=== PATIENT | male | born 1955 | race Caucasian/White ===

== ENCOUNTER 2022-06-29 00:27 | Emergency (ER) | payer OTHER ==
[2022-06-29] MEDS ORDERED: NA CHLORIDE 0.9% 1,000 ML ONE (01:30)
[2022-06-29] MEDS ORDERED: ASPIRIN 81 MG CHEWABLE TABLET ONE (01:31)
[2022-06-29] MEDS ORDERED: CEFTRIAXONE 1000 MG/VIAL ONE (01:31)
[2022-06-29] MEDS ORDERED: AZITHROMYCIN 500 MG INJ IVPB ONE (01:32)
[2022-06-29] MEDS ORDERED: FAMOTIDINE 20 MG/2 ML VIAL IV ONE ×2 (01:32→04:06)
--- NOTE | 2022-06-29 01:43 | ER ---
Nurse's Notes [facility] Name: Terrence Yoon Jr Age: 66 yrs Sex: Male : 1955 Arrival Date: 06/29/2022 Time: 00:32 Bed 2 Private MD: Diagnosis: Acute upper respiratory infection, unspecified;Fever, unspecified;Influenza due to identified novel influenza A virus;Coronavirus infection, unspecified;SARS-associated coronavirus as the cause of diseases classified elsewhere Presentation: 06/29 00:38 Chief complaint: Patient states: "I just been coughing, my nose is stopped up. I am tw5 just real real weak. If I get up and move I feel like I am going to break out in a cold sweat like I am going to faint.". Coronavirus screen: Vaccine status: Patient reports being unvaccinated. Ebola Screen: Patient negative for fever greater than or equal to 101.5 degrees Fahrenheit, and additional compatible Ebola Virus Disease symptoms Patient denies exposure to infectious person. Patient denies travel to an Ebola-affected area in the 21 days before illness onset. Initial Sepsis Screen: Does the patient meet any 2 criteria? No. Patient's initial sepsis screen is negative. Does the patient have a suspected source of infection? No. Patient's initial sepsis screen is negative. Risk Assessment: Do you want to hurt yourself or someone else? Patient reports no desire to harm self or others. Onset of symptoms was June 27, 2022. 00:38 Method Of Arrival: Wheelchair tw5 00:38 Acuity: YUMI 3 tw5 Triage Assessment: 00:40 General: Appears in no apparent distress. Behavior is quiet. Pain: Denies pain. tw5 Historical: - Allergies: 00:40 No Known Allergies; tw5 - PMHx: 00:40 None; tw5 - PSHx: 00:40 None; tw5 - Immunization history:: Flu vaccine is not up to date. - Social history:: Smoking status: Patient reports the use of cigarette tobacco products, smokes one pack cigarettes per day. - Family history:: not pertinent. Screenin:06 Abuse screen: Denies threats or abuse. Nutritional screening: No deficits noted. kl Tuberculosis screening: No symptoms or risk factors identified. Fall Risk None identified. Assessment: 01:05 General: Appears in no apparent distress. comfortable, Behavior is calm, cooperative. kl Pain: Denies pain. Neuro: No deficits noted. Cardiovascular: No deficits noted. Rhythm is sinus rhythm. Respiratory: No deficits noted. Airway is patent Trachea midline Respiratory effort is even, unlabored, Respiratory pattern is regular, symmetrical. GI: No deficits noted. No signs and/or symptoms were reported involving the gastrointestinal system. : No deficits noted. No signs and/or symptoms were reported regarding the genitourinary system. EENT: No deficits noted. No signs and/or symptoms were reported regarding the EENT system. Vital Signs: 00:38 BP 121 / 72; Pulse 67; Resp 18; Temp 97.7; Pulse Ox 100% on R/A; Weight 80.29 kg; tw5 Height 5 ft. 11 in. (180.34 cm); Pain 0/10; 01:03 BP 114 / 74; Pulse 67; Resp 20; Pulse Ox 97% ; kl 02:30 BP 140 / 79; Pulse 65; Resp 16 S; Pulse Ox 97% on R/A; as6 04:13 BP 149 / 81; Pulse 73; Resp 14 S; Pulse Ox 99% on R/A; as6 05:50 BP 143 / 83; Pulse 86; Resp 18 S; Pulse Ox 100% on R/A; as6 00:38 Body Mass Index 24.69 (80.29 kg, 180.34 cm) tw5 ED Course: 00:32 Patient arrived in ED. ja2 00:40 Triage completed. tw5 00:40 Arm band placed on. tw5 00:47 Estuardo Lai MD is Attending Physician. tata 01:23 Alhaji Romero, LEAH is Primary Nurse. as6 01:43 Mark Colon MD is Referral Physician. tata 01:58 Notified ED physician of a critical lab result(s). d dimer 746. kl 03:33 Marco Antonio Bourgeois MD is Hospitalizing Provider. tata 04:14 Placed in gown. Bed in low position. Call light in reach. Side rails up X2. as6 05:45 Mark Colon MD is Referral Physician. tata 05:50 No provider procedures requiring assistance completed. IV discontinued, intact, as6 bleeding controlled, No redness/swelling at site. Pressure dressing applied. 12:47 XRAY Chest (1 view) In Process Unspecified. EDMS Administered Medications: 01:30 Drug: NS 0.9% 1000 ml Route: IV; Rate: 1 bolus; Site: right antecubital; kl 02:30 Follow up: IV Status: Completed infusion; IV Intake: 1000ml kl 01:56 Drug: Pepcid (famotidine) 20 mg Route: IVP; Site: right antecubital; kl 03:16 Follow up: Response: No adverse reaction kl 02:07 Drug: Rocephin (cefTRIAXone) 1 grams Route: IV; Rate: per protocol; Site: right kl antecubital; 03:15 Follow up: Response: No adverse reaction kl 03:15 Follow up: Response: No adverse reaction kl 06:01 Follow up: Response: No adverse reaction; IV Status: Completed infusion; IV Intake: as6 100ml 02:57 Drug: Aspirin Chewable Tablet 162 mg Route: PO; kl 06:00 Follow up: Response: No adverse reaction as6 02:57 Drug: Zithromax (azithromycin) 500 mg Route: PO; kl 03:14 Follow up: Response: No adverse reaction kl 03:14 Drug: Tamiflu (oseltamivir) 75 mg Route: PO; kl 06:00 Follow up: Response: No adverse reaction as6 03:44 CANCELLED (Duplicate Order): Flomax (tamsulosin) 0.4 mg PO once tata 04:01 Drug: Lovenox (enoxaparin) 1 mg/kg Route: Sub-Q; Site: right lower abdomen; kd3 06:00 Follow up: Response: No adverse reaction as6 04:12 Drug: SOLU-Medrol (methylPrednisoLONE) 125 mg Route: IVP; Site: right antecubital; as6 06:00 Follow up: Response: No adverse reaction as6 04:12 Not Given (Duplicate Order): Pepcid (famotidine) 20 mg IVP once; dilute with 10 mL 0.9% as6 NaCl; give over 2 minutes 04:12 Drug: Benadryl (diphenhydrAMINE) 50 mg Route: IVP; Site: right antecubital; as6 06:00 Follow up: Response: No adverse reaction as6 Medication: 06:00 VIS not applicable for this client. as6 Intake: 02:30 IV: 1000ml; Total: 1000ml. kl 06:01 IV: 100ml; Total: 1100ml. as6 Outcome: 01:43 Discharge ordered by . tata 03:34 Decision to Hospitalize by Provider. tata 05:45 Discharge ordered by MD. tata 05:51 Discharged to home ambulatory, with family. as6 05:51 Condition: stable 05:51 Discharge instructions given to patient, Instructed on discharge instructions, follow up and referral plans. medication usage, Demonstrated understanding of instructions, follow-up care, medications, Prescriptions given X 05:59 Discharged to home ambulatory, with family. as6 05:59 Condition: stable 05:59 Discharge instructions given to patient, family, Instructed on discharge instructions, follow up and referral plans. medication usage, Demonstrated understanding of instructions, follow-up care, medications, Prescriptions given X 6 06:03 Patient left the ED. as6 Signatures: Dispatcher [employer] EDMS Brandee Sifuentes, LEAH RN Estuardo Hare MD MD cha Alexander, Jessica ja2 Wood, Tiffany tw5 Alhaji Romero RN RN as6 Erica Singh RN RN kd3 Corrections: (The following items were deleted from the chart) 00:42 00:40 Allergies: No Known Allergies; tw5 tw5
--- NOTE | 2022-06-29 01:44 | EDPHYS ---
Physician Documentation [facility] Name: Terrence Yoon Jr Age: 66 yrs Sex: Male : 1955 Arrival Date: 06/29/2022 Time: 00:32 Bed 2 Private MD: ED Physician Estuardo Lai HPI: 06/29 00:58 This 66 yrs old Male presents to ER via Wheelchair with complaints of Covid. tata 00:58 The patient has shortness of breath at rest, with light activity. Onset: The tata symptoms/episode began/occurred 3 day(s) ago. Duration: The symptoms are continuous, and are steadily getting worse. The patient's shortness of breath is aggravated by nothing, coughing, is alleviated by nothing. The patient or guardian reports cough, described as mild, flu symptoms, arthralgias, low-grade fever, myalgias. Modifying factors: The symptoms are alleviated by remaining still, the symptoms are aggravated by nothing. Associated signs and symptoms: Pertinent positives: non-productive cough. The patient or guardian reports difficulty breathing. Historical: - Allergies: 00:40 No Known Allergies; tw5 - PMHx: 00:40 None; tw5 - PSHx: 00:40 None; tw5 - Immunization history:: Flu vaccine is not up to date. - Social history:: Smoking status: Patient reports the use of cigarette tobacco products, smokes one pack cigarettes per day. - Family history:: not pertinent. ROS: 00:58 Constitutional: Negative for fever, chills, and weight loss, Eyes: Negative for injury, tata pain, redness, and discharge, Neck: Negative for injury, pain, and swelling, Cardiovascular: Negative for chest pain, palpitations, and edema, Abdomen/GI: Negative for abdominal pain, nausea, vomiting, diarrhea, and constipation, Back: Negative for injury and pain, : Negative for injury, bleeding, discharge, and swelling, MS/Extremity: Negative for injury and deformity, Skin: Negative for injury, rash, and discoloration, Neuro: Negative for headache, weakness, numbness, tingling, and seizure, Psych: Negative for depression, anxiety, suicide ideation, homicidal ideation, and hallucinations, Allergy/Immunology: Negative for hives, rash, and allergies, Endocrine: Negative for neck swelling, polydipsia, polyuria, polyphagia, and marked weight changes, Hematologic/Lymphatic: Negative for swollen nodes, abnormal bleeding, and unusual bruising. 00:58 ENT: Positive for rhinorrhea, sinus congestion. 00:58 Respiratory: Positive for cough, shortness of breath, at rest. Exam: 00:58 Constitutional: This is a well developed, well nourished patient who is awake, alert, tata and in no acute distress. Head/Face: Normocephalic, atraumatic. Eyes: Pupils equal round and reactive to light, extra-ocular motions intact. Lids and lashes normal. Conjunctiva and sclera are non-icteric and not injected. Cornea within normal limits. Periorbital areas with no swelling, redness, or edema. ENT: Nares patent. No nasal discharge, no septal abnormalities noted. Tympanic membranes are normal and external auditory canals are clear. Oropharynx with no redness, swelling, or masses, exudates, or evidence of obstruction, uvula midline. Mucous membranes moist. Neck: Trachea midline, no thyromegaly or masses palpated, and no cervical lymphadenopathy. Supple, full range of motion without nuchal rigidity, or vertebral point tenderness. No Meningismus. Chest/axilla: Normal chest wall appearance and motion. Nontender with no deformity. No lesions are appreciated. Cardiovascular: Regular rate and rhythm with a normal S1 and S2. No gallops, murmurs, or rubs. Normal PMI, no JVD. No pulse deficits. Respiratory: Lungs have equal breath sounds bilaterally, clear to auscultation and percussion. No rales, rhonchi or wheezes noted. No increased work of breathing, no retractions or nasal flaring. Abdomen/GI: Soft, non-tender, with normal bowel sounds. No distension or tympany. No guarding or rebound. No evidence of tenderness throughout. Back: No spinal tenderness. No costovertebral tenderness. Full range of motion. Male : Normal genitalia with no discharge or lesions. Skin: Warm, dry with normal turgor. Normal color with no rashes, no lesions, and no evidence of cellulitis. MS/ Extremity: Pulses equal, no cyanosis. Neurovascular intact. Full, normal range of motion. Neuro: Awake and alert, GCS 15, oriented to person, place, time, and situation. Cranial nerves II-XII grossly intact. Motor strength 5/5 in all extremities. Sensory grossly intact. Cerebellar exam normal. Normal gait. Psych: Awake, alert, with orientation to person, place and time. Behavior, mood, and affect are within normal limits. 00:58 Musculoskeletal/extremity: DVT Exam: No signs of deep vein thrombosis. no pain, no swelling, no tenderness, negative Homans' sign noted on exam, no appreciated bluish discoloration, no erythema, no increased warmth. 01:37 ECG was reviewed by the Attending Physician. [facility] Vital Signs: 00:38 BP 121 / 72; Pulse 67; Resp 18; Temp 97.7; Pulse Ox 100% on R/A; Weight 80.29 kg; tw5 Height 5 ft. 11 in. (180.34 cm); Pain 0/10; 01:03 BP 114 / 74; Pulse 67; Resp 20; Pulse Ox 97% ; kl 02:30 BP 140 / 79; Pulse 65; Resp 16 S; Pulse Ox 97% on R/A; as6 04:13 BP 149 / 81; Pulse 73; Resp 14 S; Pulse Ox 99% on R/A; as6 05:50 BP 143 / 83; Pulse 86; Resp 18 S; Pulse Ox 100% on R/A; as6 00:38 Body Mass Index 24.69 (80.29 kg, 180.34 cm) tw5 MDM: 00:47 Patient medically screened. tata 01:00 Differential diagnosis: Anemia Bronchitis CHF exacerbation, Chronic Obstructive tata Pulmonary Disease bronchitis, flu, URI, Myocardial Infarction pneumonia, pulmonary edema, Pulmonary Embolism Sepsis. Antibiotic administration: Rocephin and Zithromax given. The patient's Wells Deep Vein Thrombosis Score was calculated as follows: Total Score: 0-2 Pts- Low Risk. Differential Diagnosis: Bronchitis Influenza Upper Respiratory Infection Sinusitis Pharyngitis Otitis Media Asthma Exacerbation Pneumonia. The patient's pulmonary embolism risk score was calculated as follows: Total Score: 0-2 points. This patient was found to be at low risk for a pulmonary embolism by using the Well's assessment criteria. Immunization status: Pneumococcal vaccine: Influenza vaccine: Data reviewed: vital signs, nurses notes, lab test result(s), EKG, radiologic studies, plain films. Data interpreted: leather currier: rate is 67 beats/min, rhythm is regular. Test interpretation: by ED physician or midlevel provider: ECG, plain radiologic studies. Counseling: I had a detailed discussion with the patient and/or guardian regarding: the historical points, exam findings, and any diagnostic results supporting the discharge/admit diagnosis, lab results, radiology results, the need for outpatient follow up. 06/29 00:57 Order name: Basic Metabolic Panel [facility] 06/29 00:57 Order name: CBC with Diff [facility] 06/29 00:57 Order name: D-Dimer [facility] 06/29 00:57 Order name: LFT's [facility] 06/29 00:57 Order name: Magnesium [facility] 06/29 00:57 Order name: NT PRO-BNP [facility] 06/29 00:57 Order name: PT-INR [facility] 06/29 00:57 Order name: Troponin HS [facility] 06/29 00:57 Order name: SARS-COV-2 RT PCR (Document "Date of Onset" if Symptomatic) [facility] 06/29 00:57 Order name: Flu [facility] 06/29 00:57 Order name: Blood Culture Adult (2) [facility] 06/29 00:57 Order name: Lactate [facility] 06/29 01:57 Order name: Protime (+INR); Complete Time: 02:25 EDMS 06/29 01:57 Order name: CBC with Automated Diff; Complete Time: 02:25 EDMS 06/29 00:57 Order name: XRAY Chest (1 view) [facility] 06/29 01:58 Order name: D-Dimer; Complete Time: 02:25 EDMS 06/29 02:07 Order name: Basic Metabolic Panel; Complete Time: 02:25 EDMS 06/29 02:07 Order name: Liver (Hepatic) Function; Complete Time: 02:25 EDMS 06/29 02:07 Order name: Troponin High Sensitivity; Complete Time: 02:25 EDMS 06/29 02:08 Order name: NT PRO-BNP; Complete Time: 02:25 EDMS 06/29 02:08 Order name: Magnesium; Complete Time: 02:25 EDMS 06/29 02:26 Order name: Lactate; Complete Time: 02:50 EDMS 06/29 02:27 Order name: US Extremity Venous W Compression [place] [facility] 06/29 02:27 Order name: CT Chest For PE Angio [facility] 06/29 02:38 Order name: Influenza Screen (A ; Complete Time: 02:50 EDMS 06/29 03:24 Order name: SARS-COV-2 RT PCR; Complete Time: 03:34 EDNV 06/29 03:31 Order name: VQ scan (Nuclear Medicine) [facility] 06/29 00:57 Order name: EKG; Complete Time: 00:58 [facility] 06/29 00:57 Order name: Cardiac monitoring; Complete Time: 01:34 [facility] 06/29 00:57 Order name: EKG - Nurse/Tech; Complete Time: 01:34 [facility] 06/29 00:57 Order name: IV Saline Lock; Complete Time: : [facility] 06/29 00:57 Order name: Labs collected and sent; Complete Time: : [facility] 06/29 00:57 Order name: O2 Per Protocol; Complete Time: : [facility] 06/29 00:57 Order name: O2 Sat Monitoring; Complete Time: 34 [facility] EC:37 Rate is 64 beats/min. Rhythm is regular. QRS [place] is Normal. DE interval is normal. QRS tata interval is normal. QT interval is normal. No Q waves. T waves are Normal. No ST changes noted. Clinical impression: Normal ECG and No evidence of ischemia. Interpreted by me. Reviewed by me. Administered Medications: 01:30 Drug: NS 0.9% 1000 ml Route: IV; Rate: 1 bolus; Site: right antecubital; kl 02:30 Follow up: IV Status: Completed infusion; IV Intake: 1000ml 01:56 Drug: Pepcid (famotidine) 20 mg Route: IVP; Site: right antecubital; kl 03:16 Follow up: Response: No adverse reaction kl 02:07 Drug: Rocephin (cefTRIAXone) 1 grams Route: IV; Rate: per protocol; Site: right kl antecubital; 03:15 Follow up: Response: No adverse reaction kl 03:15 Follow up: Response: No adverse reaction kl 06:01 Follow up: Response: No adverse reaction; IV Status: Completed infusion; IV Intake: as6 100ml 02:57 Drug: Aspirin Chewable Tablet 162 mg Route: PO; kl 06:00 Follow up: Response: No adverse reaction as6 02:57 Drug: Zithromax (azithromycin) 500 mg Route: PO; kl 03:14 Follow up: Response: No adverse reaction kl 03:14 Drug: Tamiflu (oseltamivir) 75 mg Route: PO; kl 06:00 Follow up: Response: No adverse reaction as6 03:44 CANCELLED (Duplicate Order): Flomax (tamsulosin) 0.4 mg PO once tata 04:01 Drug: Lovenox (enoxaparin) 1 mg/kg Route: Sub-Q; Site: right lower abdomen; kd3 06:00 Follow up: Response: No adverse reaction as6 04:12 Drug: SOLU-Medrol (methylPrednisoLONE) 125 mg Route: IVP; Site: right antecubital; as6 06:00 Follow up: Response: No adverse reaction as6 04:12 Not Given (Duplicate Order): Pepcid (famotidine) 20 mg IVP once; dilute with 10 mL 0.9% as6 NaCl; give over 2 minutes 04:12 Drug: Benadryl (diphenhydrAMINE) 50 mg Route: IVP; Site: right antecubital; as6 06:00 Follow up: Response: No adverse reaction as6 Disposition Summary: 06/29/22 05:45 Discharge Ordered Location: Home(06/29/22 05:45) tata Problem: new(06/29/22 05:45) tata Symptoms: have improved(06/29/22 05:45) tata Condition: Fair(06/29/22 05:45) tata Diagnosis - Acute upper respiratory infection, unspecified(06/29/22 05:45) tata - Fever, unspecified(06/29/22 05:45) tata - Influenza due to identified novel influenza A virus(06/29/22 05:45) tata - Coronavirus infection, unspecified tata - SARS-associated coronavirus as the cause of diseases classified elsewhere(06/29/22 tata 05:46) Followup: tata - With: Private Physician - When: 2 - 3 days - Reason: Recheck today's complaints, Continuance of care, Re-evaluation by your physician Followup: tata - With: - When: 2 - 3 days - Reason: Recheck today's complaints, Re-evaluation by your physician Discharge Instructions: - Discharge Summary Sheet tata - Fever, Adult tata - Cool Mist Vaporizer tata - Upper Respiratory Infection, Adult, [id number] tata - Cough, Adult, [id number] tata - Aspirin and Your Heart tata - Cough, Adult tata - COVID-19 tata Forms: - Medication Reconciliation Form tata - Thank You Letter tata - Antibiotic Education tata - Prescription Opioid Use tata Prescriptions: - budesonide 180 mcg/actuation Inhalation aerosol powdr breath activated - inhale 1 puff by INHALATION route 2 times per day; 1 Pump; Refills: 0, Product [facility] Selection Permitted - Pepcid 20 mg Oral Tablet - take 1 tablet by ORAL route every 12 hours for 21 days; 42 tablet; Refills: 0, [facility] Product Selection Permitted - Tamiflu 75 mg Oral Capsule - take 1 tablet by ORAL route every 12 hours for 5 days; 10 tablet; Refills: 0, [facility] Product Selection Permitted - Zithromax 500 mg Oral Tablet - take 1 tablet by ORAL route once daily for 5 days; 5 tablet; Refills: 0, [facility] Product Selection Permitted - Tessalon Perles 100 mg Oral Capsule - take 2 capsule by ORAL route every 8 hours As needed; 30 capsule; Refills: 0, [facility] Product Selection Permitted Signatures: Dispatcher [employer] EDMS Brandee Sifuentes RN Estuardo Carter MD MD cha Basinger, Emily RN RN [email or web address] Юлия Hernandez tw5 Alhaji Romero RN RN as6 Erica Singh RN RN kd3 Corrections: (The following items were deleted from the chart) 00:42 00:40 Allergies: No Known Allergies; tw5 tw5 01:46 01:43 Home [facility] 01:46 01:43 new [facility] 01:46 01:43 have improved [facility] 01:46 01:43 Fair [facility] 01:46 01:43 Acute upper respiratory infection, unspecified [facility] 01:46 01:43 Fever, unspecified [facility] 03:44 03:43 Flomax (tamsulosin) 0.4 mg PO once ordered. [facility] 03:48 03:34 Telemetry/MedSurg (observation) [facility] eb1 03:48 03:34 [facility] eb1 04:02 03:34 Observation [facility] 04:02 03:34 BourgeoisMarco Antonio zimmerman [facility] 04:02 03:34 Fair [facility] 04:02 03:34 new [facility] 04:02 03:34 have improved [facility] 04:02 03:34 Standard [facility] 04:02 03:34 Influenza due to identified novel influenza A virus [facility] 04:02 03:34 SARS-associated coronavirus as the cause of diseases classified elsewhere [facility] 04:02 03:34 Syncope Near tata tata 04:02 03:34 Weakness tata tata 04:02 03:48 [facility] ER HOLD eb1 tata 04:02 03:48 ERHOLD- eb1 tata
[2022-06-29 01:54] LABS: Absolute Lymphocytes (CBC) 1.3 K/uL (0.7-4.9); Hematocrit 43.9 % (39.6-49.0); Lymphocytes % 21.1 % (15.3-44.8); MCV 85.9 fL (80-100)
[2022-06-29 01:56] LABS: Protime INR 1.02
[2022-06-29 02:07] LABS: Albumin 3.5 g/dL (3.4-5.0); Bilirubin Direct 0.1 mg/dL (0-0.2); Bilirubin Total 0.3 mg/dL (0.2-1.0); Magnesium 2.2 mg/dL (1.8-2.4); Potassium 3.7 mmol/L (3.5-5.1); Protein, Total 6.8 g/dL (6.4-8.2); Troponin High Sensitivity 9.7 pg/mL (<58.9)
[2022-06-29] MEDS ORDERED: AZITHROMYCIN 250 MG TAB ONE (02:52)
[2022-06-29] MEDS ORDERED: OSELTAMIVIR 75 MG CAP ONE (03:07)
[2022-06-29] MEDS ORDERED: ENOXAPARIN 80 MG/0.8 ML SQ ONE (03:47)
[2022-06-29] MEDS ORDERED: METHYLPREDNISOLONE 125 MG INJ ONE (04:06)
[2022-06-29] MEDS ORDERED: DIPHENHYDRAMINE 50 MG/ML VIAL ONE (04:06)
[2022-06-29 06:14] VITALS: TEMP 97.7
[2022-06-29 06:18] VITALS: BP 143/83; O2SAT 100
--- NOTE | 2022-06-29 07:35 | EKG ---
Test Date: 2022-06-29 Test Time: 01:36:13 Utilities Estimator And Drafter: MEASUREMENT RESULTS: Intervals: Rate: 64 ME: 152 QRSD: 106 QT: 410 QTc: 422 [place]: P: 59 ME: 152 QRS: 67 T: 68 INTERPRETIVE STATEMENTS: Normal sinus rhythm Normal ECG No previous ECG available for comparison Electronically Signed On 06-29-22 07:35:04 CDT by Drew Callahan
--- NOTE | 2022-06-29 10:24 | RAD REPORT ---
EXAM DESCRIPTION: US - Extrem Venous W Compress [place] - 06/29/2022 3:00 am CLINICAL HISTORY: 66 years, Male, Pain COMPARISON: None FINDINGS: Multiple grayscale images as well as duplex Doppler ultrasound (color and spectral analysi s) of both lower extremities were performed. Both common femoral veins, superficial femoral veins, popliteal veins, posterior tibial and peroneal veins at the level of the calves and ankles were imaged. Spectral waveform demonstrate normal com pressibility, phasicity and augmentation. No intraluminal defects were seen. IMPRESSION: No sonographic evidence of acute lower extremity deep venous thrombosis. Electronically signed by: Mejia Zepeda MD 06/29/2022 3:38 AM CDT Due to temporary technical issues with the PACS/Fluency reporting system, reports are being signed by the in house radiologists without review as a courtesy to insure prompt reporting. The interpreting radiologist is fully responsible for the content of the report.
--- NOTE | 2022-06-29 13:49 | RAD REPORT ---
EXAM DESCRIPTION: CT - Chest For Pe Angio - 06/29/2022 4:36 am CLINICAL HISTORY: 66 years Male CHEST PAIN. TECHNIQUE: Following the administration of intravenous contrast, multiple high-resolution axial imag es of the chest were performed followed by sagittal and coronal reconstructed images. Coronal oblique as well as coronal and sagittal MIP images were also performed. The CT study is performed according to ALARA (as low as reasonably achievable) or ALARA/IMAGE GENTLY, with automatic adjustment of mA and /or kV according to patient size. Performed on: 06/29/2022 at 4:33 AM COMPARISON: Chest x-ray performed on 06/29/2022 at 1:21 AM FINDINGS: There is satisfactory visualization and contrast opacification of pulmonary arteries. No definite intra-arterial filling defects are identified to suggest acute or chronic pulmonary embolis m. The thoracic aorta is normal in caliber and contour without evidence of aneurysm or dissection. The lungs are well expanded and are clear. There is no evidence of a pneumothorax. There are no pleur al effusions. There is a right middle lobe calcified granuloma. The central airways are patent and ar e unremarkable. The heart is normal in size. There is no pericardial effusion. There is no reflux of contrast into th e hepatic veins to suggest right heart strain.The RV/LV ratio is within normal limits. There is an approximately 1.6 x 1.0 cm nonspecific aorticopulmonary window lymph node and 1.5 x 1.1 c m left hilar lymph node. Otherwise, no significant mediastinal, hilar or axillary lymphadenopathy is identified. No acute osseous abnormality is identified. The visualized upper abdominal structures reveal a small hiatal hernia. There is a small 1.8 cm exoph ytic cyst arising from the upper pole of the left kidney. No follow-up imaging is recommended. IMPRESSION: 1. No evidence of acute or chronic pulmonary embolism, aortic aneurysm or aortic disse ction. 2. No evidence of acute intrathoracic disease. 3. Right middle lobe calcified granuloma. 4. Small hiatal hernia. 5. Nonspecific aorticopulmonary window and left hilar lymph nodes. Electronically signed by: Shweta Cox DO 06/29/2022 5:33 AM CDT Due to temporary technical issues with the PACS/Fluency reporting system, reports are being signed by the in house radiologists without review as a courtesy to insure prompt reporting. The interpreting radiologist is fully responsible for the content of the report.
--- NOTE | 2022-06-29 14:21 | RAD REPORT ---
EXAM DESCRIPTION: RAD - Chest Single View - 06/29/2022 1:24 am CLINICAL HISTORY: 66 years, Male, Cough COMPARISON: None. FINDINGS: Single view of the chest was obtained portable. No prior films are available for compariso n. The cardiomediastinal silhouette demonstrate to be unremarkable. The heart is not enlarged. The th oracic aorta is unremarkable. The pulmonary vasculature is normal distribution. Calcified granuloma w ithin the right lower lung zone Costophrenic angles are sharp. No areas of consolidation or masses are seen. The rest of the soft tissue and bony structures demonstrate to be unremarkable. IMPRESSION: No acute cardiopulmonary disease seen. Old granulomatous disease. Electronically signed by: Meija Zepeda MD 06/29/2022 2:26 AM CDT Due to temporary technical issues with the PACS/Fluency reporting system, reports are being signed by the in house radiologists without review as a courtesy to insure prompt reporting. The interpreting radiologist is fully responsible for the content of the report.
== END 2022-06-29 06:03 | disposition home or self-care (01) ==
LOC: ER 00:27
DX: U07.1 COVID-19 (principal); J10.1 Influenza due to other identified influenza virus with other respiratory manifestations; J06.9 Acute upper respiratory infection, unspecified; F17.210 Nicotine dependence, cigarettes, uncomplicated
CPT/HCPCS: 96365; 96361; 93005; 87040 ×2; 85025; 80048; 36415; 83735; 85610; 85379; 80076; 83605; 84484; 83880; 87804 ×2; 71275; 71045; 93970; 96375; 96372; 99284; 96366; U0003; Q9967; J1200; J7030; J2930; J0456